=== PATIENT | female | born 1935 | race Caucasian/White ===

== ENCOUNTER 2021-04-21 12:06 | Inpatient (IN) ==
[2021-04-21] MEDS ORDERED: fentaNYL CITRATE/PF 50 MCG/ML AMPUL IV ONE (12:11)
--- NOTE | 2021-04-21 12:22 | ERNOTE ---
Hip Pain HPI - Narrative Date of Service: 04/21/21 Narrative: The patient is an 85-year-old female who presents via via ambulance for right hip pain which has been present since just prior to arrival. There are associated symptoms of right lateral rotation and shortening of extremity. The patient reports pain to right hip, 8/10. There are alleviating factors of immobilization. There are aggravating factors of movement. Previous treatments have included: Morphine given via EMS with slight improvement. The past medical history includes: Hypothyroidism, GERD, breast cancer. The social history is positive for former smoker. Patient was at home using the vacuum when she tri pped over the cord falling landing on right hip. Patient states she did strike the right side of her head but denies neck pain or LOC. Patient arrives via EMS in vacu-splint to aid with immobilization but does have noted shortening and right lateral rotation of lower extremity. - General Chief Complaints:: Right hip pain Time Seen by Provider: 04/21/21 12:09 Source: patient Exam Limitations: no limitations - Immun/Allergies/Home Medications Allergies/Adverse Reactions: Allergies Allergy/AdvReac Type Severity Reaction Status Date / Time No Known Allergies Allergy Verified 04/21/21 16:21 Home Medications: Ambulatory Orders Medication Instructions Recorded levothyroxine 50 mcg capsule 50 mcg PO DAILY 04/10/19 Acetaminophen [Tylenol] 500 mg PO Q6H PRN 04/13/19 Cholecalciferol [Vitamin D] 5,000 unit PO DAILY 04/21/21 Fluocinonide/Emollient Base 15 gm TP BID PRN 04/21/21 [Fluocinonide-E 0.05% Cream] Review of Systems - Review of Systems Constitutional: Present: no symptoms reported. Absent: fatigue, fever, recent illness EENTM: Present: no symptoms reported. Absent: ear pain, sore throat, nasal drainage Respiratory: Present: no symptoms reported. Absent: cough, short of breath Cardiology: Present: no symptoms reported. Absent: chest pain Gastrointestinal/Abdominal: Present: no symptoms reported. Absent: abdominal pain, diarrhea, nausea, vomiting Genitourinary: Present: no symptoms reported. Absent: dysuria Musculoskeletal: Present: joint pain. Absent: back pain, neck pain Skin: Present: no symptoms reported. Absent: rash Neurological: Present: no symptoms reported. Absent: numbness, tingling Pain Exam - Physical Exam General Appearance: Present: WD/WN, moderate distress Eyes, Ears, Nose, Throat Exam: Present: normal ENT inspection, pharynx normal Neck Exam: Present: non-tender, full range of motion, normal inspection Cardiovascular/Respiratory: Present: regular rate, rhythm, normal peripheral pulses, normal breath sounds, no respiratory distress. Absent: accessory muscle use Gastrointestinal/Abdominal: Present: normal bowel sounds, no organomegaly, non tender. Absent: no pulsatile mass Extremity Exam: Present: no pedal edema, bony-point tenderness - Right lateral and anterior hip, pain with movement Neurologic: Present: no motor/sensory deficits, alert, normal mood/affect, oriented x 3. Absent: motor weakness, sensory deficit Skin Exam: Present: normal color, warm/dry, no cyanosis ED Progress - Date and Time Seen: Date and Time: 04/21/21 14:17 Case and images reviewed with Bran TEMPLETON accepts for admission. 04/21/21 14:29 Case reviewed with , will admit for acute for right hip fracture. Results of imaging and plan of care discussed with patient, verbalized understanding. - VITAL SIGNS Patient's Vital Signs:: I have reviewed the patient's vital signs. - RESULTS AND ORDERS Patient's Lab Results:: I have reviewed the patient's lab results. - EKG EKG #1 EKG: NSR, nonspecific ST T wave chg EKG Read: Reviewed by me EKG Comments: No acute ST elevation, no acute ischemic changes, no ectopy. - X-Ray X-Ray #1 XRAY: hip X-Ray Interpretation: Reviewed by me X-Ray Comments: IMPRESSION: PROXIMAL RIGHT FEMORAL FRACTURE. Electronically signed by Carmelo Estrada MD. X-Ray #2 XRAY: chest X-Ray Interpretation: Reviewed by me X-Ray Comments: IMPRESSION: BILATERAL INTERSTITIAL PROMINENCE, LIKELY SCARRING. Electronically signed by Carmelo Estrada MD. - CT/ULTRASOUND CT/Ultrasound Narrative: IMPRESSION: CHRONIC SENESCENT CHANGE. NO ACUTE INTRACRANIAL ABNORMALITY OR SKULL FRACTURE. Electronically signed by Carmelo Estrada MD. Departure - Departure Clinical Impression: Hip fracture, right Qualifiers: Encounter type: initial encounter Fracture type: closed Qualified Code(s): S72.001A - Fracture of unspecified part of neck of right femur, initial e ncounter for closed fracture Disposition: Still a patient Condition: Fair
[2021-04-21 12:43] LABS: Hematocrit 32.5 % (37.0-47.0); Hemoglobin 10.4 gm/dL (12.5-16.0); Mean Cell Volume 91.8 fl (78-100); Mean Corpuscular Hemoglobin 29.4 pg (27-31); Mean Platelet Volume 10.6 fl (8-12.5); Neutrophil # 7.2 K/mm3 (1.3-6.0); Neutrophil % 72.4 % (42-75.0); Platelet Count 244 K/mm3 (150-450); Red Blood Count 3.54 M/mm3 (4.2-5.4); Red Cell Distribution Width 13.4 % (11.5-14.0); White Blood Count 9.9 K/mm3 (4.0-10.5)
[2021-04-21 12:55] LABS: Albumin * 3.4 gm/dl (3.4-5.0); Anion Gap 12.4 mmol/L (6.8-13.8); BUN/Creatinine Ratio 25.8 (9.0-21.6); Bilirubin, Total 0.5 mg/dL (0.0-1.1); Ca. Corrected For Albumin 10.4 mg/dL (8.4-10.2); Calcium * 10.2 mg/dL (7.9-10.9); Carbon Dioxide 25.9 mmol/L (24-32.6); Potassium 4.3 mmol/L (3.4-4.6)
[2021-04-21] MEDS ORDERED: MORPHINE SULFATE 4 MG/ML SYRG IV ONE (14:27)
[2021-04-21] MEDS ORDERED: ONDANSETRON HCL/PF 2 MG/ML VIAL IV ONE (15:43)
[2021-04-21] MEDS ORDERED: ONDANSETRON HCL/PF 2 MG/ML VIAL ONE (15:43)
[2021-04-21] MEDS ORDERED: ONDANSETRON HCL/PF 2 MG/ML VIAL IV PRN (16:05)
[2021-04-21] MEDS ORDERED: MORPHINE SULFATE 4 MG/ML SYRG IV PRN (16:05)
--- NOTE | 2021-04-21 16:58 | CONS ---
- Reason for consultation (1) Hip fracture, right Date of Service: 04/21/21 HPI - General Date of Service: 04/21/21 Narrative: 85-year-old female presents today by EMS to the ED status post a fall. The fall was mechanical patient tripped over a cord while vacuuming. She had acute right hip pain. X-rays revealed mildly displaced intertrochanteric femur fracture on the right side. Patient has increased symptoms with movement better with rest. She has had mild nausea at this time. She otherwise reports no acute complaints. Denies any other significant rating or modifying factors. Source: patient Exam Limitations: no limitations - History of Present Illness Allergies/Adverse Reactions: Allergies No Known Allergies Allergy (Verified 04/21/21 16:21) Home Medications: Home Medications Medication Instructions Recorded Last Taken levothyroxine 50 mcg capsule 50 mcg PO DAILY 04/10/19 04/12/19 Acetaminophen [Tylenol] 500 mg PO Q6H PRN 04/13/19 04/12/19 Cholecalciferol [Vitamin D] 5,000 unit PO DAILY 04/21/21 Unknown Fluocinonide/Emollient Base 15 gm TP BID PRN 04/21/21 Unknown [Fluocinonide-E 0.05% Cream] Physical Examination - Exam Vital Signs: Vital Signs - Last Taken Temp 36.5 C 04/21/21 16:24 Pulse 81 04/21/21 16:24 Resp 16 04/21/21 16:24 BP 151/65 H 04/21/21 16:24 Pulse Ox 93 04/21/21 16:24 O2 Oxygen Delivery Method Room Air Constitutional: Present: Alert, Oriented x3, Cooperative ENT Exam: Present: normal ENT inspection Extremity: Present: other - RLE--> sensation tact light touch, diffuse mild tenderness about right hip, mild shortening and external rotation, no obvious wounds, capillary refill brisk, 5/5 ankle plantar flexion/dorsiflexion Skin Exam: Present: normal color, warm/dry Appearance: Present: appropriate appearance Eye contact: Present: cooperative Thoughts: Present: normal thought pattern - Results and Findings: Lab/Microbiology results last 24 hrs: Abnormal/Pending Laboratory Last 24 HRS 04/21/21 04/21/21 12:37 12:37 RBC 3.54 L Hgb 10.4 L Hct 32.5 L Immature Gran % (Auto) 0.80 H Immature Gran # (Auto) 0.08 H Lymphocytes % 16.6 L Neutrophils # 7.2 H BUN 24 H BUN/Creatinine Ratio 25.8 H Calcium Adj for Albumin 10.4 H - Assessments/Findings (1) Hip fracture, right Problem: Acute Qualifiers: Encounter type: initial encounter Fracture type: closed Qualified Code(s): S72.001A - Fracture of unspecified part of neck of right femur, initial encounter for closed fracture Plan - Plan Plan: -85-year-old female presents today status post a mechanical fall with a right intertrochanteric femur fracture. Discussed with patient treatment option including conservative or surgical intervention. Discussed risk versus benefits including but not limited to infection, bleeding, DVT risk, long-term complications, continued pain, changes in range of motion or strength, cardiac and stroke risk, inherent risk of surgery, continued symptoms. She expressed understanding agreed to proceed. Patient is scheduled for surgery on 04/22/2021 pending medical clearance per medicine team. Discussed with patient continued monitoring the hospital, pain control, other acute complaints to be addressed. Consent was obtained and all questions were answered without significant complication. Patient will be maintained in the hospital monitoring for acute complications.
--- NOTE | 2021-04-21 17:01 | HP ---
Chief Complaint - Chief Complaint Date of Service: 04/21/21 Time of Service: 16:51 Chief Complaint: Right Hip Pain History of Present Illness: Tamela is an 85 yo female that presented to the [facility] ER after getting caught up in her vacuum tower cleaner cord, tripping, and falling. She immediately noticed right hip pain. In the ER xrays showed Right proximal femur fracture. EKG, labs, and vitals were unremarkable. She has a history of hypothyroidism secondary to surgical removal of parathroid, GERD, and breast cancer. She takes replacement thyroid hormone. She reports recently being medically healthy and has not been seeing a medical Doctor for anything specific except her hypothyroidism. She denies chest pain, shortness of breath, dizziness, or syncope. Medical History (Last Reviewed 04/21/21 @ 13:24 by Cierra Dickinson RN) Fracture of lateral malleolus (Acute) Breast cancer left Esophageal reflux Gallstones Influenza vaccine refused already received for season 04/10/19. THOM Bonilla Psoriasis Onset Date: Unknown Right fibular fracture Onset Date: 03/27/19 overactive parathyroid Thyroid disease Onset Date: Unknown hypothyroid Surgical History: Surgical History (Last Reviewed 04/21/21 @ 13:24 by Cierra Dickinson RN) mastectomy with axillary node dissection (Acute) left History of open reduction and internal fixation (ORIF) procedure Onset Date: ~04/13/19 Open reduction internal fixation right lateral malleolus fracture. Dr. Garza History of salpingo-oophorectomy excision tumor from thyroid at age 24 Family History: Family History (Last Reviewed 04/21/21 @ 13:24 by Cierra Dickinson RN) Father Cancer Mother Diabetes Sister Cancer Other Breast cancer Lung cancer Social History: (Last Reviewed 04/21/21 @ 13:24 by Cierra Dickinson RN) Social History: Marital status: lives independently: Yes household members: spouse current occupational status: retired Highest level of school completed/degree received: high school graduate Service: No Tobacco: Smoking Status: Former smoker Alcohol: alcohol intake: never Substance Use: substance use type: does not use Dietary Habits: caffeine: Yes Review Of Systems (GEN) - Review of Systems Generalized/Overall Review: Absent: Weakness, Chills, Fever EENTM: Present: No Symptoms Reported Respiratory: Absent: Cough, Shortness of Breath Cardiac: Absent: Chest Pain, Edema Abdominal: Present: Nausea - after pain medication, Vomiting - after pain medication Genitourinary: Present: No Symptoms Reported Musculoskeletal: Present: Joint Pain Neurological: Absent: Headache, Numbness, Weakness Skin: Absent: Lesions, Rash Immunizations: IMMUNIZATION HX Immunizations Up to Date Yes Allergies/Adverse Reactions: Allergies Allergy/AdvReac Type Severity Reaction Status Date / Time No Known Allergies Allergy Verified 04/21/21 16:21 Home Medications: HOME MEDICATIONS levothyroxine 50 mcg capsule 50 mcg PO DAILY 04/10/19 [Last Taken 04/12/19] Acetaminophen [Tylenol] 500 mg PO Q6H PRN 04/13/19 [Last Taken 04/12/19] Cholecalciferol [Vitamin D] 5,000 unit PO DAILY 04/21/21 [Last Taken Unknown] Fluocinonide/Emollient Base [Fluocinonide-E 0.05% Cream] 15 gm TP BID PRN 04/21/21 [Last Taken Unknown] Exam - Exam Vital Signs: Vital Signs - Last Taken Temp 36.5 C 04/21/21 16:24 Pulse 81 04/21/21 16:24 Resp 16 04/21/21 16:24 BP 151/65 H 04/21/21 16:24 Pulse Ox 93 04/21/21 16:24 Constitutional: Present: Alert, Oriented x3 ENT Exam: Present: hearing grossly normal Eye Exam: bilateral eye: normal inspection Respiratory: Present: lungs clear, normal breath sounds, no respiratory distress Cardiovascular/Chest: Present: regular rate, rhythm, no murmur Peripheral Pulses: radial (R): 2+, radial (L): 2+ Abdomen: Present: Normal bowel sounds, soft, nontender, nondistended Extremity: Present: no pedal edema, normal capillary refill Skin Exam: Present: normal color, warm/dry, no cyanosis Neurologic: Present: alert, normal mood/affect, oriented x 3 Appearance: Present: appropriate appearance, appropriate insight Eye contact: Present: cooperative, good eye contact, normal speech Thoughts: Present: normal thought pattern, no apparent hallucination Diagnostic Studies: Abnormal Lab Results 04/21/21 04/21/21 Range/Units 12:37 12:37 RBC 3.54 L (4.2-5.4) M/mm3 Hgb 10.4 L (12.5-16.0) gm/dL Hct 32.5 L (37.0-47.0) % Immature Gran % (Auto) 0.80 H (0.001-0.429) % Immature Gran # (Auto) 0.08 H (0.000-0.0310) K/mm3 Lymphocytes % 16.6 L (20-51) % Neutrophils # 7.2 H (1.3-6.0) K/mm3 BUN 24 H (3-23) mg/dL BUN/Creatinine Ratio 25.8 H (9.0-21.6) Calcium Adj for Albumin 10.4 H (8.4-10.2) mg/dL Laboratory Results WBC 9.9 K/mm3 (4.0-10.5) 04/21/21 12:37 RBC 3.54 M/mm3 (4.2-5.4) L 04/21/21 12:37 Hgb 10.4 gm/dL (12.5-16.0) L 04/21/21 12:37 Hct 32.5 % (37.0-47.0) L 04/21/21 12:37 MCV 91.8 fl (78-100) 04/21/21 12:37 MCH 29.4 pg (27-31) 04/21/21 12:37 MCHC 32.0 g/dl (32-36) 04/21/21 12:37 RDW 13.4 % (11.5-14.0) 04/21/21 12:37 Plt Count 244 K/mm3 (150-450) 04/21/21 12:37 MPV 10.6 fl (8-12.5) 04/21/21 12:37 Immature Gran % (Auto) 0.80 % (0.001-0.429) H 04/21/21 12:37 Immature Gran # (Auto) 0.08 K/mm3 (0.000-0.0310) H 04/21/21 12:37 Neutrophils % 72.4 % (42-75.0) 04/21/21 12:37 Lymphocytes % 16.6 % (20-51) L 04/21/21 12:37 Monocytes % 7.8 % (0.0-9) 04/21/21 12:37 Eosinophils % 1.6 % (0.0-3.0) 04/21/21 12:37 Basophils % 0.8 % (0.0-1.0) 04/21/21 12:37 Nucleated RBC % 0.0 k/mm3 (0-1) 04/21/21 12:37 Neutrophils # 7.2 K/mm3 (1.3-6.0) H 04/21/21 12:37 Lymphocytes # 1.64 k/mm3 (1.5-3.5) 04/21/21 12:37 Monocytes # 0.8 k/mm3 (0.0-1.0) 04/21/21 12:37 Eosinophils # 0.2 k/mm3 (0.0-0.7) 04/21/21 12:37 Absolute Basophils 0.1 k/mm3 (0.0-0.1) 04/21/21 12:37 Sodium 140 mmol/L (132-142) 04/21/21 12:37 Plasma Sodium 140 mmol/L (130-142) 04/21/21 12:37 Potassium 4.3 mmol/L (3.4-4.6) 04/21/21 12:37 Chloride 106 mmol/L (97-106) 04/21/21 12:37 Carbon Dioxide 25.9 mmol/L (24-32.6) 04/21/21 12:37 Anion Gap 12.4 mmol/L (6.8-13.8) 04/21/21 12:37 BUN 24 mg/dL (3-23) H 04/21/21 12:37 Creatinine 0.93 mg/dL (0.4-1.4) 04/21/21 12:37 Est GFR (Non-Af Amer) 61 mL/min (60-130) 04/21/21 12:37 BUN/Creatinine Ratio 25.8 (9.0-21.6) H 04/21/21 12:37 Random Glucose 105 mg/dL (70-110) 04/21/21 12:37 Calcium 10.2 mg/dL (7.9-10.9) 04/21/21 12:37 Calcium Adj for Albumin 10.4 mg/dL (8.4-10.2) H 04/21/21 12:37 Total Bilirubin 0.5 mg/dL (0.0-1.1) 04/21/21 12:37 AST 23 U/L (0-48) 04/21/21 12:37 ALT 25 U/L (19-67) 04/21/21 12:37 Alkaline Phosphatase 99 U/L (50-170) 04/21/21 12:37 Total Protein 7.0 gm/dL (6.2-8.2) 04/21/21 12:37 Albumin 3.4 gm/dl (3.4-5.0) 04/21/21 12:37 SARS-CoV-2 (PCR) Not detected (NotDetected) 04/21/21 14:12 Assessment/Plan - Narrative Narrative: Tamela is an 85 yo female with: 1) Right hip fracture. She has been medically evaluated and cleared for surgery. Her cardiovascular risk is 1% for event. I do not see any contraindication to surgery to repair her hip. Will admit and follow along as medical. Orthopedics consulted and planning surgery tomorrow. - Assessment/Plan (1) Hip fracture, right Problem: Acute Qualifiers: Encounter type: initial encounter Fracture type: closed Qualified Code(s): S72.001A - Fracture of unspecified part of neck of right femur, initial encounter for closed fracture
[2021-04-22] MEDS: RINGER'S SOLUTION,LACTATED 1,000 ML IV PRN ×4 (05:55→22:45)
[2021-04-22] MEDS ORDERED: ceFAZolin SODIUM 1 GM VIAL IV PRN (06:00)
[2021-04-22] MEDS ORDERED: ceFAZolin SODIUM 1 GM VIAL ONE (07:03)
[2021-04-22] MEDS ORDERED: ONDANSETRON HCL/PF 2 MG/ML VIAL ONE (07:36)
[2021-04-22] MEDS ORDERED: GLYCOPYRROLATE 0.2 MG/ML VIAL ONE (07:36)
[2021-04-22] MEDS ORDERED: SUCCINYLCHOLINE CHLORIDE 20 MG/ML VIAL ONE (07:36)
[2021-04-22] MEDS ORDERED: fentaNYL CITRATE/PF 50 MCG/ML AMPUL ONE (07:36)
[2021-04-22] MEDS ORDERED: PROPOFOL VIAL IV ONE (07:36)
[2021-04-22] MEDS ORDERED: LIDOCAINE HCL 20 ML VIAL ONE (07:36)
[2021-04-22] MEDS ORDERED: ROCURONIUM BROMIDE 10 MG/ML VIAL ONE (07:36)
[2021-04-22] MEDS ORDERED: NEOSTIGMINE METHYLSULFATE 1 MG/ML VIAL ONE (07:36)
[2021-04-22] MEDS ORDERED: BUPIVACAINE HCL 50 ML VIAL IJ ONE ×2 (08:32→08:52)
[2021-04-22] MEDS ORDERED: MAGNESIUM HYDROXIDE 30 ML UDC PO PRN (09:17)
[2021-04-22] MEDS ORDERED: MORPHINE SULFATE 2 MG/ML DISP.SYRIN IV PRN (09:17)
[2021-04-22] MEDS ORDERED: MAG HYDROX/ALUMINUM HYD/SIMETH 30 ML UDC PO PRN (09:17)
--- NOTE | 2021-04-22 09:17 | OR ---
Operative Report - Dictated Report Narrative: Date: 04/22/2021 Surgeon: Manohar Osborne M.D. Snuff Blender: Bran Baires PA-C (provided an essential set of skilled educated handset assisted with transfer, positioning, prepping, draping, placement of instruments, insertion of implants, irrigation, closure wounds, and placement of dressings all which could not be performed by the available surgical crew) Preoperative diagnosis: Comminuted closed right intertrochanteric femur fracture Postoperative diagnosis: Comminuted closed right intertrochanteric femur fracture Operations and procedures: 1. Closed reduction, cephalo-medullary fixation right intertrochanteric femur fracture 2. Intraoperative interpretation of radiographs Anesthesia: General plus local Specimens: None Estimated blood loss: 75 milliliters Retained implants: [employer] Trigen InterTAN 130 degree size 10 mm by 40 centimeter nail with 95 millimeter lag screw and 90 millimeter compression screw, with distal locking screw Complications: None Indications for procedure: Mrs. Bonilla is an 85-year-old female who injured the right leg after ground- level fall at home. They were admitted to the hospital after being evaluated in the emergency department. Once the medical provider felt that they were stable for surgical treatment, the risks and benefits alternatives were discussed. The risks of , blood clots, bleeding, infection, nerve/tendon/blood vessel injury, malunion, nonunion, failure of implants, painful implants, arthrosis, and need for additional procedures were discussed. The extremity was marked and consent was obtained on the floor. Procedure: After marking the operative extremity on the floor, the patient was taken to the operating room. A timeout was performed. IV antibiotics consisting of Ancef were administered. A general anesthetic was induced by anesthesia, and the patient was then placed onto a fracture table with a well-padded perineal post. The nonoperative leg was placed in a well-padded traction boot in slight extension without any traction with an SCD on the leg. The operative leg was placed in a well-padded traction boot. Longitudinal traction, internal rotation, and flexion were utilized in order to reduce the fracture. Preliminary images were attained utilizing C-arm in both the AP and lateral views. This confirmed that we had obtained adequate visualization of the fracture as well as reduction. Next the hip was then prepped and draped in a standard sterile fashion. Next the guidewire was placed percutaneously proximal to the greater trochanter to laverne a starting point at the tip of the greater trochanter centered on the lateral view. This was passed down to the level below the lesser trochanter. A scalpel was utilized in order to dissect down to the greater trochanter in order to place the soft tissue protector down to bone. The entry drill was then pl aced down the proximal femur to the level of the lesser trochanter. The proper size nail was then selected and impacted into place. The outrigger was utilized in order to confirm the appropriate depth of the nail. Using the alignment device on the outrigger, an incision was made over the lateral femur. Sharp dissection was carried through the iliotibial band down to the proximal femur. The guidewire was placed into the femoral head in a center- center position on AP and lateral views. The tip-apex distance of less than 25 mm combined was obtained. Once we felt that we had placed a guidewire in the appropriate position, it was measured. Next the compression screw site was drilled through the lateral femoral cortex. This was then drilled down to the appropriate depth, again confirming that we are within the confines the bone. The derotational bar was then placed and the lag screw was drilled. The lag screw was then secured in place seating fully ensuring that we were within the confines of the bone. The compression screw was then inserted allowing for compression while releasing the traction on the leg. Using C-arm this was visualized to allow for compression across the fracture site. Once is felt that we had adequately stabilized the intertrochanteric fracture, the distal interlocking screw was placed in a dynamic position using the C arm for guidance. It was confirmed to be the appropriate length and within the nail on both AP and lateral views. The nail was secured allowing for controlled compression and the outrigger was removed. The wounds were then thoroughly irrigated. Final images were obtained. The hip was placed through range of motion and showed no crepitance. The deep fascia was closed with 0 Vicryl, the subcutaneous tissue with 3-0 Vicryl, and the skin was closed with she. Sterile dressings of Xeroform, 4 x 4, and tape were applied. All sponge, sharp, and instrument counts were correct prior to closing the wounds. The patient was then awoken and transferred to the postanesthesia care unit in stable condition.
--- NOTE | 2021-04-22 09:39 | ANES ---
Post Anesthesia Discharge - Transfer of Care Transfer of Care handoff given to nurse: Yes - Discharge from PACU Discharge from PACU when meets criteria: Yes - Discharge to ASU Discharge to ASU-no complications/pt stable: Yes
--- NOTE | 2021-04-22 09:39 | ANES ---
Anesthesia Pre Procedure Eval Vitals/Labs: Last Vital Signs Temp 37.2 C 04/22/21 09:30 Pulse 93 04/22/21 09:35 Resp 16 04/22/21 09:35 BP 135/65 04/22/21 09:35 Pulse Ox 94 04/22/21 09:35 HOME MEDICATIONS levothyroxine 50 mcg capsule 50 mcg PO DAILY 04/10/19 [Last Taken 04/12/19] Acetaminophen [Tylenol] 500 mg PO Q6H PRN 04/13/19 [Last Taken 04/12/19] Cholecalciferol [Vitamin D] 5,000 unit PO DAILY 04/21/21 [Last Taken Unknown] Fluocinonide/Emollient Base [Fluocinonide-E 0.05% Cream] 15 gm TP BID PRN 04/21/21 [Last Taken Unknown] Allergies/Adverse Reactions: Allergies Allergy/AdvReac Type Severity Reaction Status Date / Time No Known Allergies Allergy Verified 04/21/21 16:21 - Planned Procedure Planned Procedure: HIP/FX Medication List Reviewed:: Yes Allergies Verified: Yes Medical History (Last Reviewed 04/22/21 @ 09:38 by Randy Manriquez CRNA) Fracture of lateral malleolus (Acute) Breast cancer left Esophageal reflux Gallstones Influenza vaccine refused already received for season 04/10/19. THOM Bonilla Psoriasis Onset Date: Unknown Right fibular fracture Onset Date: 03/27/19 overactive parathyroid Thyroid disease Onset Date: Unknown hypothyroid Surgical History (Last Reviewed 04/22/21 @ 09:38 by Randy Manriquez CRNA) mastectomy with axillary node dissection (Acute) left History of open reduction and internal fixation (ORIF) procedure Onset Date: ~04/13/19 Open reduction internal fixation right lateral malleolus fracture. Dr. Garza History of salpingo-oophorectomy excision tumor from thyroid at age 24 Family History (Last Reviewed 04/22/21 @ 09:38 by Randy Manriquez CRNA) Father Cancer Mother Diabetes Sister Cancer Other Breast cancer Lung cancer - Family Anesthesia History Family History:: no untoward family reactions to anesthesia, no familial bleeding tendencies, no family history of clotting disorders, no family history of premature - Airway/Neck/Teeth Within Normal Limits:: Yes Teeth Condition: intact Mallampatti Score: 3 Thyromental (T-M) distance: > 6 cm Mandibulo Hyoid distance: > 3 cm - Respiratory Respiratory Physical: rhonchi Smoking Status: Former smoker Discussed smoking cessation including day of surgery: No Sleep Apnea currently treated: No Sleep Apnea by current assessment: No Discussed Risks/Treatment of BARNEY: No - Cardiovascular Tolerate Activity: Fair Heart Sounds: S1 & S2, Regular - Gastrointestinal NPO since: mn - Anesthesia Assessment and Plan ASA Class: PS, III, E Anesthesia Type Plan: General ET
--- NOTE | 2021-04-22 10:13 | ANES ---
Post Anesthesia Assessment - Vital Signs Vitals: Last Vital Signs Temp 37.3 C 04/22/21 09:55 Pulse 91 04/22/21 09:55 Resp 15 04/22/21 09:55 BP 139/54 04/22/21 09:55 Pulse Ox 93 04/22/21 09:55 Airway Patency: Normal - Mental Status Level Of Consciousness: Awake - Pain Level Pain Score: 6 - N/V Assessment Nausea/Vomiting Presence: None Dehydration:: No
[2021-04-22] MEDS: ceFAZolin SODIUM 1 GM in DEXTROSE 5 % IN WATER 100 ML IV SCH ×6 (10:21→22:45)
[2021-04-22] MEDS: ACETAMINOPHEN 500 MG TABLET PO PRN (16:19)
[2021-04-22] MEDS: SENNOSIDES/DOCUSATE SODIUM 1 TAB TABLET PO SCH (20:09)
[2021-04-22] MEDS: METOCLOPRAMIDE HCL 5 MG/ML VIAL IV PRN (20:09)
--- NOTE | 2021-04-22 23:26 | PN ---
Subjective - Date and Time Seen Date: 04/22/21 Time: 16:00 Subjective Narrative: Tamela reports pain is improved. She would like to only take tylenol as stronger pain medications make her nauseated. Zofran did not help with nausea. She does not have an appetite. Objective - Vitals Vitals: Last Vital Signs Temp 36.8 C 04/22/21 19:53 Pulse 85 04/22/21 21:53 Resp 18 04/22/21 21:53 BP 113/47 04/22/21 21:53 Pulse Ox 98 04/22/21 21:53 - Exam Constitutional: Present: Alert, Oriented x3, Cooperative ENT Exam: Present: hearing grossly normal Respiratory: Present: lungs clear, normal breath sounds, no respiratory distress Cardiovascular/Chest: Present: regular rate, rhythm, no murmur Abdomen: Present: Normal bowel sounds, soft, nontender, nondistended Skin Exam: Present: normal color, warm/dry, no cyanosis Eye contact: Present: cooperative, good eye contact, normal speech Thoughts: Present: normal thought pattern, no apparent hallucination Cauti Physician Documentation - Urinary Catheter Management Urethral ([facility]) Date of Insertion: 04/21/21 Time of Insertion: 12:16 Assessment/Plan Plan Narrative: Will stop zofran and change to IV reglan as the zofran was not helping. She wishes to take just Tylenol for pain due to stronger pain medications making her sick. Otherwise no medical concerns at this time. - Problems/Diagnosis (1) Hip fracture, right Problem: Acute Qualifiers: Encounter type: initial encounter Fracture type: closed Qualified Code(s): S72.001A - Fracture of unspecified part of neck of right femur, initial encounter for closed fracture
[2021-04-23 07:31] LABS: Mean Cell Volume 90.4 fl (78-100); Mean Corpuscular Hemoglobin 29.2 pg (27-31); Mean Corpuscular Hgb Conc 32.3 g/dl (32-36); Platelet Count 171 K/mm3 (150-450); Red Cell Distribution Width 13.7 % (11.5-14.0); White Blood Count 16.1 K/mm3 (4.0-10.5)
[2021-04-23 07:32] LABS: Anion Gap 10.9 mmol/L (6.8-13.8); BUN/Creatinine Ratio 24.7 (9.0-21.6); Calcium * 7.5 mg/dL (7.9-10.9); Carbon Dioxide 26.8 mmol/L (24-32.6); Estimated Creat Clear 44.5; Potassium 3.7 mmol/L (3.4-4.6)
[2021-04-23] MEDS: ACETAMINOPHEN 500 MG TABLET PO PRN ×3 (08:04→23:54)
[2021-04-23] MEDS: RIVAROXABAN 20 MG TABLET PO SCH (08:04)
[2021-04-23 08:10] LABS: Hematocrit 22.6 % (37.0-47.0); Hemoglobin 7.3 gm/dL (12.5-16.0)
[2021-04-23] MEDS: METOCLOPRAMIDE HCL 5 MG/ML VIAL IV PRN (10:54)
--- NOTE | 2021-04-23 14:49 | PN ---
Subjective - Date and Time Seen Date: 04/23/21 Time: 14:45 Subjective Narrative: Patient reports pain is controlled in bed. She states she has more discomfort when she gets up and moves around but that is to be expected. She has had nausea throughout her whole stay. She does not feel is related to pain medication because she is only taking Tylenol for discomfort. She was able to get up to the chair and ambulate 15 feet with therapy earlier. She reports some lightheadedness when she gets up. She has no other complaints at this time. Objective Objective Narrative: Patient is lying comfortably in bed. She is alert and appears oriented. She responds to questions appropriately. Her bandages are clean dry intact. She reports sensation intact in her right lower extremity. She is able to plantarflex and dorsiflex her ankle. Calf is supple. Vitals reviewed she is not tachycardic or hypotensive. Labs reviewed showing her hemoglobin did go from 10.4-7.3. BMP is unremarkable - Vitals Vitals: Last Vital Signs Temp 36.8 C 04/23/21 14:23 Pulse 90 04/23/21 14:23 Resp 12 04/23/21 14:23 BP 120/47 04/23/21 14:23 Pulse Ox 92 L 04/23/21 14:23 - Abnormal Lab Findings Abnormal Lab Findings: Abnormal Lab Results 04/23/21 04/23/21 Range/Units 07:00 07:00 WBC 16.1 H D (4.0-10.5) K/mm3 RBC 2.50 L (4.2-5.4) M/mm3 Hgb 7.3 L* D (12.5-16.0) gm/dL Hct 22.6 L* D (37.0-47.0) % BUN/Creatinine Ratio 24.7 H (9.0-21.6) Calcium 7.5 L (7.9-10.9) mg/dL Cauti Physician Documentation - Urinary Catheter Management Urethral ([facility]) Date of Insertion: 04/21/21 Time of Insertion: 12:16 Date of Removal: 04/23/21 Time of Removal: 05:15 Assessment/Plan - Problems/Diagnosis (1) Hip fracture, right Problem: Acute Qualifiers: Encounter type: initial encounter Fracture type: closed Qualified Code(s): S72.001A - Fracture of unspecified part of neck of right femur, initial encounter for closed fracture Narrative: Patient is postop day 1 intramedullary fixation of right hip fracture. Her pain is controlled. She has a postop anemia which is asymptomatic besides some lightheadedness when she gets up to ambulate. Will follow recommendations per medical regarding this. Discussed she will most likely need skilled care for period time as she states her is not able to help her much. She will need 6 weeks of anticoagulation.
--- NOTE | 2021-04-23 15:33 | PN ---
Subjective - Date and Time Seen Date: 04/23/21 Time: 12:30 Subjective Narrative: Tamela reports feeling tired and nauseated. Her appetite is poor. She believes nausea and appetite are a little improved from yesterday, but not much. She reports pain is controlled. Her hemoglobin is 7.2 today compared to 10 yesterday. Objective - Vitals Vitals: Last Vital Signs Temp 36.8 C 04/23/21 14:23 Pulse 90 04/23/21 14:23 Resp 12 04/23/21 14:23 BP 120/47 04/23/21 14:23 Pulse Ox 92 L 04/23/21 14:23 - Abnormal Lab Findings Abnormal Lab Findings: Abnormal Lab Results 04/23/21 04/23/21 Range/Units 07:00 07:00 WBC 16.1 H D (4.0-10.5) K/mm3 RBC 2.50 L (4.2-5.4) M/mm3 Hgb 7.3 L* D (12.5-16.0) gm/dL Hct 22.6 L* D (37.0-47.0) % BUN/Creatinine Ratio 24.7 H (9.0-21.6) Calcium 7.5 L (7.9-10.9) mg/dL - Exam Constitutional: Present: Alert, Oriented x3, Cooperative, No distress Respiratory: Present: lungs clear, normal breath sounds Cardiovascular/Chest: Present: regular rate, rhythm, no murmur Abdomen: Present: soft, nontender, nondistended, hypoactive Skin Exam: Present: normal color, warm/dry, no cyanosis Appearance: Present: appropriate appearance, appropriate insight Eye contact: Present: cooperative, good eye contact, normal speech Thoughts: Present: normal thought pattern, no apparent hallucination Cauti Physician Documentation - Urinary Catheter Management Urethral ([facility]) Date of Insertion: 04/21/21 Time of Insertion: 12:16 Date of Removal: 04/23/21 Time of Removal: 05:15 Assessment/Plan Plan Narrative: Tamela is a little better today. Her hgb did drop to 7.2. Holding off on transfusion at this time as it is not medically indicated. Will recheck tomorrow. She will continue therapy. Continue to work on nutrition and strengthening. Continue reglan prn. Will discontinue IV fluids today to hopefully stimulate her to drink and eat more. Will likely need SNF for further strengthening. - Problems/Diagnosis (1) Hip fracture, right Problem: Acute Qualifiers: Encounter type: initial encounter Fracture type: closed Qualified Code(s): S72.001A - Fracture of unspecified part of neck of right femur, initial encounter for closed fracture (2) Acute blood loss anemia Problem: Acute
[2021-04-23] MEDS: SENNOSIDES/DOCUSATE SODIUM 1 TAB TABLET PO SCH (20:48)
[2021-04-24 09:46] LABS: Mean Cell Volume 90.6 fl (78-100); Mean Corpuscular Hemoglobin 29.8 pg (27-31); Mean Corpuscular Hgb Conc 32.9 g/dl (32-36); Platelet Count 164 K/mm3 (150-450); Red Blood Count 2.45 M/mm3 (4.2-5.4); Red Cell Distribution Width 13.6 % (11.5-14.0); White Blood Count 14.9 K/mm3 (4.0-10.5)
[2021-04-24 09:49] LABS: Hematocrit 22.2 % (37.0-47.0); Hemoglobin 7.3 gm/dL (12.5-16.0)
[2021-04-24 09:51] LABS: Total Cells Counted 100
[2021-04-24 09:59] LABS: Albumin * 2.6 gm/dl (3.4-5.0); Anion Gap 6.4 mmol/L (6.8-13.8); BUN/Creatinine Ratio 16.5 (9.0-21.6); Bilirubin, Total 0.7 mg/dL (0.0-1.1); Ca. Corrected For Albumin 8.4 mg/dL (8.4-10.2); Calcium * 7.6 mg/dL (7.9-10.9); Carbon Dioxide 29.3 mmol/L (24-32.6); Potassium 3.7 mmol/L (3.4-4.6); Total Protein 5.7 gm/dL (6.2-8.2)
[2021-04-24] MEDS: RIVAROXABAN 20 MG TABLET PO SCH (10:14)
[2021-04-24] MEDS: METOCLOPRAMIDE HCL 5 MG/ML VIAL IV PRN (10:15)
[2021-04-24 10:55] LABS: Band 1 % (0-2.0); Eosinophil 1 % (0-3); Lymphocyte 7 % (20-51); Monocyte 12 % (0-9); Neutrophil 79 % (42-75); Neutrophil # 11.8 K/mm3 (1.3-6.0)
[2021-04-24 10:56] LABS: RBC Morphology PN (NORMAL)
[2021-04-24 10:57] LABS: Hypochromia 1+; Polychromasia Trace
--- NOTE | 2021-04-24 17:13 | PN ---
Subjective - Date and Time Seen Date: 04/24/21 Time: 12:30 Subjective Narrative: Tamela continues to report nausea and decreased appetite. Sodium down to 129 today. Hemoglobin stable at 7.3. No fever, chills. Pain is controlled. Objective - Vitals Vitals: Last Vital Signs Temp 36.5 C 04/24/21 14:39 Pulse 73 04/24/21 14:39 Resp 18 04/24/21 14:39 BP 128/47 04/24/21 14:39 Pulse Ox 93 04/24/21 14:39 - Abnormal Lab Findings Abnormal Lab Findings: Abnormal Lab Results 04/24/21 04/24/21 Range/Units 09:40 09:40 WBC 14.9 H (4.0-10.5) K/mm3 RBC 2.45 L (4.2-5.4) M/mm3 Hgb 7.3 L* (12.5-16.0) gm/dL Hct 22.2 L* (37.0-47.0) % Neutrophils % (Manual) 79 H (42-75) % Lymphocytes % (Manual) 7 L (20-51) % Monocytes % (Manual) 12 H (0-9) % Neutrophils # (Manual) 11.8 H (1.3-6.0) K/mm3 Lymphocytes # (Manual) 1.0 L (1.5-3.5) k/mm3 Monocytes # (Manual) 1.8 H (0.0-1.0) k/mm3 Sodium 129 L (132-142) mmol/L Plasma Sodium 129 L (130-142) mmol/L Anion Gap 6.4 L (6.8-13.8) mmol/L Random Glucose 122 H (70-110) mg/dL Calcium 7.6 L (7.9-10.9) mg/dL Total Protein 5.7 L (6.2-8.2) gm/dL Albumin 2.6 L (3.4-5.0) gm/dl - Exam Constitutional: Present: Alert, Oriented x3, Cooperative ENT Exam: Present: hearing grossly normal Respiratory: Present: lungs clear, normal breath sounds Cardiovascular/Chest: Present: regular rate, rhythm, no murmur Abdomen: Present: Normal bowel sounds, soft, nontender, nondistended Skin Exam: Present: normal color, warm/dry, no cyanosis Appearance: Present: appropriate appearance, appropriate insight Eye contact: Present: cooperative, good eye contact, normal speech Cauti Physician Documentation - Urinary Catheter Management Urethral ([facility]) Date of Insertion: 04/21/21 Time of Insertion: 12:16 Date of Removal: 04/23/21 Time of Removal: 05:15 Assessment/Plan Plan Narrative: She continues to not eat well and have nausea. Pain is controlled. She reported similar episode after prior surgery. She reports pain medications and anesthesia does not sit well with her. Hemoglobin stable today, not planning to transfuse unless it were to drop below 7. Sodium has dropped to 129. Secondary to poor oral intake. Will encourage more eating today, will recheck this afternoon, if it does not improve will need to give IV NS over night. Hoping to discharge to [place] tomorrow if hemoglobin stable, nausea controlled, and sodium stable with improved appetite. - Problems/Diagnosis (1) Hip fracture, right Problem: Acute Qualifiers: Encounter type: initial encounter Fracture type: closed Qualified Code(s): S72.001A - Fracture of unspecified part of neck of right femur, initial encounter for closed fracture (2) Acute blood loss anemia Problem: Acute (3) Hyponatremia Problem: Acute
[2021-04-24 17:59] LABS: Albumin * 2.6 gm/dl (3.4-5.0); Anion Gap 10.1 mmol/L (6.8-13.8); BUN/Creatinine Ratio 19.2 (9.0-21.6); Bilirubin, Total 0.7 mg/dL (0.0-1.1); Ca. Corrected For Albumin 8.7 mg/dL (8.4-10.2); Calcium * 7.9 mg/dL (7.9-10.9); Carbon Dioxide 27.5 mmol/L (24-32.6); Potassium 3.6 mmol/L (3.4-4.6)
[2021-04-24] MEDS: HYDROcodone/ACETAMINOPHEN 1 EACH TABLET PO PRN (19:01)
[2021-04-24] MEDS: SENNOSIDES/DOCUSATE SODIUM 1 TAB TABLET PO SCH (20:13)
--- NOTE | 2021-04-25 07:05 | DS ---
(1) Hip fracture, right Problem: Acute Qualifiers: Encounter type: initial encounter Fracture type: closed Qualified Code(s): S72.001A - Fracture of unspecified part of neck of right femur, initial encounter for closed fracture (2) Acute blood loss anemia Problem: Acute (3) Hyponatremia Problem: Resolved Date of Discharge:: 04/25/21 Hospital Course: Tamela was admitted after falling from tripping on the vacuum hat cleaner cord. She broke her right hip. She was medically cleared and had Closed reduction, cephalo-medullary fixation right intertrochanteric femur fracture by Dr. Osborne on 04/22. She did well with surgery. She has worked with PT and will need additional therapy and will be discharged to [place] for SNF. She had acute blood loss anemia secondary to fracture and surgery, but blood counts are stable. She had nausea and poor appetite after surgery likely from pain medication. This caused hyponatremia, but this has resolved. She will be discharged to [place] today. She will have hydrocodone as needed for pain control. She will have 6 weeks of anticoagulation. She will follow up with orthopedics. Procedures Performed: see notes below List Procedures: Closed reduction, cephalo-medullary fixation right intertrochanteric femur fracture (04/22/21). Results and Findings: Lab Pending Results 04/21/21 12:37: WBC 9.9, RBC 3.54 L, Hgb 10.4 L, Hct 32.5 L, MCV 91.8, MCH 29.4, MCHC 32.0, RDW 13.4, Plt Count 244, MPV 10.6, Immature Gran % (Auto) 0.80 H, Immature Gran # (Auto) 0.08 H, Neutrophils % 72.4, Lymphocytes % 16.6 L, Monocytes % 7.8, Eosinophils % 1.6, Basophils % 0.8, Nucleated RBC % 0.0, Neutrophils # 7.2 H, Lymphocytes # 1.64, Monocytes # 0.8, Eosinophils # 0.2, Absolute Basophils 0.1 04/21/21 12:37: Sodium 140, Plasma Sodium 140, Potassium 4.3, Chloride 106, Carbon Dioxide 25.9, Anion Gap 12.4, BUN 24 H, Creatinine 0.93, Est GFR (Non-Af Amer) 61, BUN/Creatinine Ratio 25.8 H, Random Glucose 105, Calcium 10.2, Calcium Adj for Albumin 10.4 H, Total Bilirubin 0.5, AST 23, ALT 25, Alkaline Phosphatase 99, Total Protein 7.0, Albumin 3.4 04/21/21 14:12: SARS-CoV-2 (PCR) Not detected 04/23/21 07:00: WBC 16.1 H D, RBC 2.50 L, Hgb 7.3 L* D, Hct 22.6 L* D, MCV 90.4, MCH 29.2, MCHC 32.3, RDW 13.7, Plt Count 171, MPV 11.0 04/23/21 07:00: Sodium 136, Plasma Sodium 136, Potassium 3.7, Chloride 102, Carbon Dioxide 26.8, Anion Gap 10.9, BUN 21, Creatinine 0.85, Est GFR (Non-Af Amer) 67, BUN/Creatinine Ratio 24.7 H, Random Glucose 109, Calcium 7.5 L 04/24/21 09:40: WBC 14.9 H, RBC 2.45 L, Hgb 7.3 L*, Hct 22.2 L*, MCV 90.6, MCH 29.8, MCHC 32.9, RDW 13.6, Plt Count 164, MPV 10.0, Immature Gran % (Auto) Senior Marketing Specialist, Immature Gran # (Auto) Senior Marketing Specialist, Neutrophils % Senior Marketing Specialist, Neutrophils % (Manual) 79 H, Band Neuts % (Manual) 1, Lymphocytes % Senior Marketing Specialist, Lymphocytes % (Manual) 7 L, Monocytes % Senior Marketing Specialist, Monocytes % (Manual) 12 H, Eosinophils % Senior Marketing Specialist, Eosinophils % (Manual) 1, Basophils % Senior Marketing Specialist, Nucleated RBC % Senior Marketing Specialist, Neutrophils # Senior Marketing Specialist, Neutrophils # (Manual) 11.8 H, Lymphocytes # Senior Marketing Specialist, Lymphocytes # (Manual) 1.0 L, Monocytes # Senior Marketing Specialist, Monocytes # (Manual) 1.8 H, Eosinophils # Senior Marketing Specialist, Eosinophils # (Manual) 0.1, Absolute Basophils Senior Marketing Specialist, RBC Morphology Pn, Polychromasia Trace, Hypochromasia 1+ 04/24/21 09:40: Sodium 129 L, Plasma Sodium 129 L, Potassium 3.7, Chloride 97, Carbon Dioxide 29.3, Anion Gap 6.4 L, BUN 13, Creatinine 0.79, Est GFR (Non-Af Amer) 73, BUN/Creatinine Ratio 16.5, Random Glucose 122 H, Calcium 7.6 L, Calcium Adj for Albumin 8.4, Total Bilirubin 0.7, AST 38, ALT 28, Alkaline Phosphatase 82, Total Protein 5.7 L, Albumin 2.6 L 04/24/21 17:35: Sodium 133, Plasma Sodium 133, Potassium 3.6, Chloride 99, Carbon Dioxide 27.5, Anion Gap 10.1, BUN 15, Creatinine 0.78, Est GFR (Non-Af Amer) 74, BUN/Creatinine Ratio 19.2, Random Glucose 109, Calcium 7.9, Calcium Adj for Albumin 8.7, Total Bilirubin 0.7, AST 35, ALT 29, Alkaline Phosphatase 91, Total Protein 6.0 L, Albumin 2.6 L Discharge Location: [facility] Disposition: SNF Condition: Fair Level of Care: SNF Discharge Activity: Weight bearing Discharge Diet: General/regular food [facility] Therapy: Physical Therapy, Occupation Therapy Referrals: Ryann Segura APRN [Primary Care Provider] - Manohar Osborne MD [Staff Physician] - Two Weeks Problem Oriented Discharge Instructions to Patient/Family: Hip Fracture Additional Patient Instructions (free text): To [facility] for therapies, PT and OT to evaluate and treat. Please call and fax her discharge information to them. Follow up [facility] Orthopedic office appointment on WednesdayMay 05 at 10:15am. 6 weeks of xarelto Prescriptions (Any new or edited meds): HYDROcodone/ACETAMINOPHEN [[place] 5-325] 1 ea PO Q3H PRN #30 tab PRN Reason: Moderate Pain (Pain Scale 4-6) Transmission Status: Received by [facility] Rivaroxaban [Xarelto] 10 mg PO DAILY #30 tab Transmission Status: Pending to [facility] Complete Home Medications List: Complete Home Medication List: levothyroxine 50 mcg capsule 50 mcg PO DAILY 04/10/19 Acetaminophen [Tylenol] 500 mg PO Q6H PRN 04/13/19 Cholecalciferol [Vitamin D] 5,000 unit PO DAILY 04/21/21 Fluocinonide/Emollient Base [Fluocinonide-E 0.05% Cream] 15 gm TP BID PRN 04/21/21 Acetaminophen [Tylenol] 1,000 mg PO Q6H PRN tab 04/25/21 HYDROcodone/ACETAMINOPHEN [[place] 5-325] 1 ea PO Q3H PRN #30 tab 04/25/21 Rivaroxaban [Xarelto] 10 mg PO DAILY #30 tab 04/25/21 Forms: Patient Portal Registration
[2021-04-25 07:09] LABS: Mean Cell Volume 91.3 fl (78-100); Mean Corpuscular Hemoglobin 29.5 pg (27-31); Mean Corpuscular Hgb Conc 32.3 g/dl (32-36); Mean Platelet Volume 10.9 fl (8-12.5); Platelet Count 208 K/mm3 (150-450); Red Blood Count 2.41 M/mm3 (4.2-5.4); Red Cell Distribution Width 13.5 % (11.5-14.0); White Blood Count 13.2 K/mm3 (4.0-10.5)
[2021-04-25 07:21] LABS: Hemoglobin 7.1 gm/dL (12.5-16.0)
[2021-04-25 07:23] LABS: Albumin * 2.3 gm/dl (3.4-5.0); Anion Gap 10.1 mmol/L (6.8-13.8); BUN/Creatinine Ratio 19.5 (9.0-21.6); Bilirubin, Total 0.6 mg/dL (0.0-1.1); Ca. Corrected For Albumin 8.8 mg/dL (8.4-10.2); Calcium * 7.8 mg/dL (7.9-10.9); Carbon Dioxide 27.6 mmol/L (24-32.6); Potassium 3.7 mmol/L (3.4-4.6); Total Cells Counted 100; Total Protein 5.7 gm/dL (6.2-8.2)
[2021-04-25 07:40] LABS: Lymphocyte 25 % (20-51); Monocyte 4 % (0-9); Neutrophil 71 % (42-75); Neutrophil # 9.4 K/mm3 (1.3-6.0)
[2021-04-25 07:41] LABS: Hypochromia 1+; Platelet Estimate Normal (NORMAL)
[2021-04-25 07:42] LABS: Anisocytosis 1+
[2021-04-25] MEDS: HYDROcodone/ACETAMINOPHEN 1 EACH TABLET PO PRN (09:06)
[2021-04-25] MEDS: RIVAROXABAN 20 MG TABLET PO SCH (09:06)
[2021-04-25 10:56] VITALS: BP 129/63
== END 2021-04-25 11:01 | DRG 481 ==
LOC: ER 12:06 → MS 15:57
PROVIDERS: ADMIT Family Medicine; ATTEND Family Medicine